=== PATIENT | female | born 1990 | race African-American/Black ===

== ENCOUNTER 2021-07-04 03:12 | Observation (INO) | payer MEDICAID, OTHER ==
[~2021-07-04] VITALS: Ht 170.2 cm; Wt 90.3 kg
[2021-07-04 04:26] LABS: Amphetamine Screen, Urine NEGATIVE (NEGATIVE); Barbiturate Scree,Urine NEGATIVE (NEGATIVE); Benzodiazephine Screen, Urine NEGATIVE (NEGATIVE); Cannabinoid Screen, Urine NEGATIVE (NEGATIVE); Cocaine Screen, Urine NEGATIVE (NEGATIVE); Opiate Scree,Urine NEGATIVE (NEGATIVE); Phencyclidine Screen, Urine NEGATIVE (NEGATIVE)
[2021-07-04] MEDS ORDERED: BETAMETHASONE ACET (30mg/5ml) 5ml Vial 6mg/ml IM ONE (04:30)
[2021-07-04 04:40] LABS: Urine Bacteria MANY /hpf (None Seen); Urine Blood Negative /uL (Negative); Urine Mucus FEW (None Seen); Urine Specific Gravity 1.022 (1.001-1.035); Urine WBC 10 /hpf (0 - 5)
[2021-07-04 05:24] LABS: Basophils # (auto) 0.1 10 ^3/uL (0-0.2); Basophils % (auto) 0.5 % (0.0-2.0); Eosinophils # (auto) 0.1 10 ^3/uL (0-0.8); Monocytes # (auto) 0.7 10 ^3/uL (0-1.3); Monocytes % (auto) 5.9 % (0.0-12.0)
[2021-07-04] MEDS ORDERED: TERBUTALINE SULFATE 1 MG/ML 1ML VIAL SC ONE (05:24)
[2021-07-04 05:25] LABS: Hematocrit 25.3 % (36.0-46.0); Hemoglobin 7.9 g/dL (12.2-16.2); Lymphocytes # (auto) 1.7 10 ^3/uL (0.4-5.4); Lymphocytes % (auto) 14.7 % (10.0-50.0); Mean Corpuscular Hemoglobin 19.5 pg (28.0-32.0); Mean Corpuscular Hgb Conc. 31.2 g/dL (32.0-36.0); Mean Corpuscular Volume 62.5 fL (80.0-100.0); Neutrophils % (auto) 77.9 % (37.0-80.0); Red Blood Cells 4.05 10^6/uL (4.0-5.20); Red Cell Distribution Width 19.3 % (11.8-14.3); White Blood Cell 11.5 10^3/uL (4.4-10.8)
[2021-07-04] MEDS ORDERED: LACTATED RINGER'S 1,000 ML IV ONE (05:30)
[2021-07-04] MEDS ORDERED: LACTATED RINGER'S 1,000 ML IV SCH (05:30)
[2021-07-04] MEDS: TERBUTALINE SULFATE 1 MG/ML 1ML VIAL SC SCH ×2 (05:33→06:24)
[2021-07-04 05:37] LABS: Albumin 2.3 g/dL (3.4-5.0); BUN/Creatinine Ratio 10.5; Calcium 8.3 mg/dL (8.5-10.1); Potassium 3.8 mmol/L (3.5-5.1); Uric Acid 3.8 mg/dL (2.6-6.0)
[2021-07-04 05:40] LABS: Bilirubin, Total 0.2 mg/dL (0.2-1.0); Total Protein 6.1 g/dL (6.4-8.2)
[2021-07-04 06:00] LABS: INR 0.95 (0.9-1.15); Partial Thromboplastin Time 27.3 sec (23.6-33.0)
[2021-07-04 14:33] LABS: Protein, Urine 50.2 mg/dL (0.0-11.9)
== END 2021-07-04 07:45 | disposition home or self-care (01) ==
LOC: LDRP 03:12
PROVIDERS: ADMIT Obstetrics & Gynecology; ATTEND Obstetrics & Gynecology
DX: O62.9 Abnormality of forces of labor, unspecified (principal); O36.8130 Decreased fetal movements, third trimester, not applicable or unspecified; O21.2 Late vomiting of pregnancy; Z3A.36 36 weeks gestation of pregnancy; Z79.899 Other long term (current) drug therapy
CPT/HCPCS: 36415; 59025; 76805; 76817; 76818; 80053; 80307; 81001; 81002; 82570; 84156; 84550; 85025; 85384; 85610; 85730; 94760; 96360; 96361; 96372; G0378; G0379; J3105